=== PATIENT | male | born 1980 ===

== ENCOUNTER 2017-02-15 00:18 | Emergency (ER) | payer OTHER ==
[2017-02-15 00:36] VITALS: BP 146/92; TEMP 98
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
[2017-02-15 02:45] VITALS: PULSE 103; RESP 15; O2SAT 100
--- NOTE | 2017-02-15 07:25 | CARD ---
APPROVED REPORT EKG Measurement Heart [id number] ME [id number] <Conclusion> Sinus tachycardia Otherwise normal ECG
== END 2017-02-15 03:02 | disposition home or self-care (01) ==
LOC: H.ER 00:18
DX: F43.0 Acute stress reaction (principal); Y99.0 Civilian activity done for income or pay